=== PATIENT | male | born 1990 | race Caucasian/White ===

== ENCOUNTER 2019-06-04 14:46 | Emergency (ER) | payer SELFPAY ==
[2019-06-04] MEDS ORDERED: Tetracaine HCl/PF 0.5% 4 ML Bottle EYERT ONE (15:58)
--- NOTE | 2019-06-04 16:14 | EDM.PDOC ---
ED HPI GENERAL MEDICAL PROBLEM - General Chief Complaint: Eye Problems Stated Complaint: (R) EYE IRRITATION Time Seen by Provider: 06/04/19 15:40 Source of Information: Reports: Patient, Family History Limitations: Reports: No Limitations - History of Present Illness INITIAL COMMENTS - FREE TEXT/NARRATIVE: 28 yo male recently moved to area from [place]. 5 days ago he noticed increase in redness of his right eye. progressively worsening of redness and today swelling of lid was to such a degree that he could not open. left eye also mildly irritated today. scant purulent drainage. generally healthy. today the sight of the eye was also effected and he feels he can only see shapes and shadows but vision is very blurry. denies headache, fever chills or pain. Right Eye Pain Score (Numeric/FACES): 5 - Related Data Allergies Allergy/AdvReac Type Severity Reaction Status Date / Time cefaclor [From [facility]] Allergy Airway Verified 06/04/19 15:39 Tightness Home Meds: Home Meds NK [No Known Home Meds] 06/04/19 [History] Past Medical History Respiratory History: Reports: Asthma Psychiatric History: Reports: Anxiety - Past Surgical History Respiratory Surgical History: Reports: None Dermatological Surgical History: Reports: None Social & Family History - Tobacco Use Smoking Status *Q: Current Every Day Smoker Years of Tobacco use: 13 Packs/Tins Daily: 1 - Caffeine Use Caffeine Use: Reports: Coffee, Soda, Tea - Recreational Drug Use Recreational Drug Use: No ED ROS GENERAL - Review of Systems Review Of Systems: See Below Constitutional: Denies: Fever, Chills, Fatigue HEENT: Reports: Eye Discharge, Eye Pain Respiratory: Denies: Shortness of Breath, Wheezing Cardiovascular: Denies: Chest Pain ED EXAM GENERAL W FULL EYE - Physical Exam Exam: See Below Exam Limited By: No Limitations General Appearance: Alert, WD/WN, No Apparent Distress Eyelids: Right: Edema, Erythema, Lid Everted for Exam Conjunctiva & Sclera: Right: Conjunctival Edema, Injected, Scleral Icterus Cornea Exam: Right: Corneal Abrasion Extraocular Movements: Bilateral: Intact Pupillary Reaction: Bilateral: Brisk Anterior Chamber: Bilateral: Normal Appearance Posterior Chamber: Bilateral: Normal Funduscopic Ears: Normal External Exam, Normal Canal Throat/Mouth: Normal Inspection, Normal Lips, Normal Teeth, Normal Gums, Normal Oropharynx, Normal Voice Head: Atraumatic, Normocephalic Neck: Normal Inspection. No: Lymphadenopathy (R), Lymphadenopathy (L) Respiratory/Chest: No Respiratory Distress, Lungs Clear, Normal Breath Sounds Cardiovascular: Regular Rate, Rhythm, No Murmur Course - Vital Signs Last Recorded V/S: Last Vital Signs Temp 36.6 C 06/04/19 15:38 Pulse 87 06/04/19 15:38 Resp 16 06/04/19 15:38 BP 141/78 H 06/04/19 15:38 Pulse Ox 96 06/04/19 15:38 - Orders/Labs/Meds Orders: Active Orders 24 hr Category Date Time Status Visual Acuity [Vision Test] [RC] ASDIRECTED Care 06/04/19 16:08 Active Meds: Medications Discontinued Medications Generic Name Dose Route Start Last Admin Trade Name Freq PRN Reason Stop Dose Admin Tetracaine HCl 2 ml 06/04/19 15:58 06/04/19 16:01 Tetracaine 0.5% Steri-Unit Carmela EYERT 06/04/19 15:59 2 ml ASDIRECTED ONE Administration Departure - Departure Time of Disposition: 16:26 Disposition: Home, Self-Care 01 Condition: Good Clinical Impression: Conjunctivitis Qualifiers: Conjunctivitis type: acute Acute conjunctivitis type: bacterial Laterality: right Qualified Code(s): H10.31 - Unspecified acute conjunctivitis, right eye Corneal abrasion Qualifiers: Encounter type: initial encounter Laterality: right Qualified Code(s): S05.01XA - Injury of conjunctiva and corneal abrasion without foreign body, right eye, initial encounter - Discharge Information *PRESCRIPTION DRUG MONITORING PROGRAM REVIEWED*: Not Applicable *COPY OF PRESCRIPTION DRUG MONITORING REPORT IN PATIENT ARNOLD: Not Applicable Instructions: Bacterial Conjunctivitis, [id number], Corneal Abrasion, Easy-to -Read Referrals: PCP,None [Primary Care Provider] - Forms: ED Department Discharge Additional Instructions: Polytrim 2 gtt into both eye every 4 hours while awake ice pack to eye for pain relief it is very important that you follow-up with an eye doctor tomorrow - My Orders Last 24 Hours: My Active Orders 06/04/19 16:08 Visual Acuity [Vision Test] [RC] ASDIRECTED - Assessment/Plan Last 24 Hours: My Active Orders 06/04/19 16:08 Visual Acuity [Vision Test] [RC] ASDIRECTED
== END 2019-06-04 16:38 | disposition home or self-care (01) ==
LOC: JP.ED 14:46
DX: S05.01XA Injury of conjunctiva and corneal abrasion without foreign body, right eye, initial encounter (principal); H10.31 Unspecified acute conjunctivitis, right eye; F17.210 Nicotine dependence, cigarettes, uncomplicated; Z88.1 Allergy status to other antibiotic agents; X58.XXXA Exposure to other specified factors, initial encounter
CPT/HCPCS: 99283

== ENCOUNTER 2019-06-14 13:08 | Emergency (ER) | payer SELFPAY ==
--- NOTE | 2019-06-14 14:28 | EDM.PDOC ---
ED HPI GENERAL MEDICAL PROBLEM - General Chief Complaint: Eye Problems Stated Complaint: RIGHT EYE SWOLLEN Time Seen by Provider: 06/14/19 14:10 Source of Information: Reports: Patient, Old Records History Limitations: Reports: No Limitations - History of Present Illness INITIAL COMMENTS - FREE TEXT/NARRATIVE: 28 yo male was seen here 10 d ago for a R red eye with decreased acuity. He was dx with a corneal abrasion and conjunctivitis. Prescribed an eye ointment and told to see an eye doctor the next day. He returns stating he only called [facility] and they couldn't see him for a couple weeks, he cannot afford it, and he wants us just to refill the antibiotic Rx that clearly is not doing anything for him. Onset: Gradual Onset Date: 06/03/19 Duration: Week(s): (~2 weeks), Getting Worse Quality: Reports: Dull Severity: Severe Improves with: Reports: None Worsens with: Reports: Other (? 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 (see below) (see HPI) - Related Data Allergies Allergy/AdvReac Type Severity Reaction Status Date / Time cefaclor [From [facility]] Allergy Airway Verified 06/14/19 13:56 Tightness Home Meds: Home Meds Polymyxin B Sulf/Trimethoprim [Polytrim Eye Drops] 2 drop TOP Q4HR 06/14/19 [ History] Past Medical History Respiratory History: Reports: Asthma Psychiatric History: Reports: Anxiety - Past Surgical History Respiratory Surgical History: Reports: None Dermatological Surgical History: Reports: None Social & Family History - Tobacco Use Smoking Status *Q: Current Every Day Smoker Years of Tobacco use: 15 Packs/Tins Daily: 0.5 - Caffeine Use Caffeine Use: Reports: Tea - Recreational Drug Use Recreational Drug Use: No ED ROS GENERAL - Review of Systems Review Of Systems: ROS reveals no pertinent complaints other than HPI. HEENT: Reports: Eye Discharge, Eye Pain, Vision Change ED EXAM GENERAL W FULL EYE - Physical Exam Exam: See Below Exam Limited By: No Limitations General Appearance: Alert, WD/WN, No Apparent Distress Eye Exam: Right Eye: Vision Changes, Other (R eye very red with clouding over the pupil. ), Bilateral Eye: EOMI Eyelids: Bilateral: Normal Appearance Conjunctiva & Sclera: Right: Injected Pupils: Unequal Pupillary Size: Right: 1 mm, Left: 3 mm Pupillary Reaction: Right: Sluggish Course - Vital Signs Last Recorded V/S: Last Vital Signs Temp 36.6 C 06/14/19 13:55 Pulse 83 06/14/19 13:55 Resp 16 06/14/19 13:55 BP 133/82 06/14/19 13:55 Pulse Ox 94 L 06/14/19 13:55 - Orders/Labs/Meds Orders: Active Orders 24 hr Category Date Time Status TROPONIN I [CHEM] Stat Lab 06/14/19 14:12 Ordered Departure - Departure Time of Disposition: 14:29 Disposition: Home, Self-Care 01 Condition: Serious Clinical Impression: Iritis of right eye - Discharge Information *PRESCRIPTION DRUG MONITORING PROGRAM REVIEWED*: No *COPY OF PRESCRIPTION DRUG MONITORING REPORT IN PATIENT ARNOLD: No Referrals: PCP,None [Primary Care Provider] - Additional Instructions: Go directly to [address] [place] [address] in [place] to the eye clinic. - My Orders Last 24 Hours: My Active Orders 06/14/19 14:12 TROPONIN I [CHEM] Stat - Assessment/Plan Last 24 Hours: My Active Orders 06/14/19 14:12 TROPONIN I [CHEM] Stat
== END 2019-06-14 14:43 | disposition home or self-care (01) ==
LOC: JP.ED 13:08
DX: H20.9 Unspecified iridocyclitis (principal); F17.210 Nicotine dependence, cigarettes, uncomplicated; Z88.1 Allergy status to other antibiotic agents; Z79.2 Long term (current) use of antibiotics
CPT/HCPCS: 99282